=== PATIENT | male | born 1965 | race American Indian/Alaskan Native ===

== ENCOUNTER 2017-01-31 13:44 | Emergency (ER) | payer MEDICAID ==
[2017-01-31 13:56] VITALS: BP 133/74; PULSE 80; RESP 18; TEMP 98.4; O2SAT 98
--- NOTE | 2017-01-31 14:29 | ED PDOC ---
HPI: Dental Pain/Injury Time Seen by Provider: 01/31/17 14:15 Chief Complaint (Nursing): Dental Pain Chief Complaint (Provider): Left sided dental pain History Per: Patient History/Exam Limitations: no limitations Onset/Duration Of Symptoms: Days Current Symptoms Are (Timing): Still Present Severity: Moderate Quality: "Pain" Additional History Per: Patient Additional Complaint(s): The pt is a 51yo male, presents to the ED for evaluation of left sided dental pain radiating to left ear for the past 2 weeks. Pt denies any fever, chills or recent dental work. States he has not visited a dentist for his symptoms due to lack of dental insurance. Currently offers no additional medical complaints. Past Medical History Reviewed: Historical Data, Nursing Documentation, Vital Signs Vital Signs: Last Vital Signs Temp 98.4 F 01/31/17 13:51 Pulse 80 01/31/17 13:51 Resp 18 01/31/17 13:51 BP 133/74 01/31/17 13:51 Pulse Ox 98 01/31/17 13:51 - Medical History PMH: Diabetes - Surgical History Surgical History: No Surg Hx - Family History Family History: States: Unknown Family Hx - Home Medications Home Medications: Ambulatory Orders Medication Instructions Recorded Cyclobenzaprine HCl [Flexeril] 10 mg PO Q8 #20 tab 11/10/14 Ibuprofen [Motrin] 600 mg PO Q6 PRN #20 tab 11/10/14 Metformin Hydrochloride [Metformin] 500 mg PO BID 11/10/14 Naproxen [Naprosyn Tab] 1 tab PO QID #15 tab 01/31/17 Penicillin VK [Pen-Vee K] 1 tab PO QID #40 tab 01/31/17 - Allergies Allergies/Adverse Reactions: Allergies Allergy/AdvReac Type Severity Reaction Status Date / Time No Known Allergies Allergy Verified 01/31/17 13:51 Review of Systems ROS Statement: Except As Marked, All Systems Reviewed And Found Negative Constitutional: Negative for: Fever, Chills ENT: Positive for: Ear Pain (left), Other (left sided dental pain) Physical Exam - Reviewed Nursing Documentation Reviewed: Yes Vital Signs Reviewed: Yes - Physical Exam Appears: Positive for: Well, Non-toxic, No Acute Distress Head Exam: Positive for: ATRAUMATIC Skin: Positive for: Normal Color, Warm Eye Exam: Positive for: Normal appearance, EOMI, PERRL ENT: Positive for: TM Is/Are (normal b/l), Other (broken tooth noted to left lower jaw) Neck: Positive for: Normal, Supple Neurologic/Psych: Positive for: Alert, Oriented - ECG O2 Sat by Pulse Oximetry: 98 (RA) Pulse Ox Interpretation: Normal Medical Decision Making Medical Decision Making: Time: 1430 Impression: Dental pain Plan: * Based on presentation, pt informed he will be given Rx antibiotics and given referrals for [facility] as well as an oral surgeon. * Pt informed on the need to follow up for further care. Pt expresses understanding and is agreeable with plan Scribe Attestation: All records were documented by Breanna Patel, acting as a Scribe for JADA Tinoco. Provider Scribe Attestation: All medical record entries made by the Scribe were at my direction and personally dictated by me. I have reviewed the chart and agree that the record accurately reflects my personal performance of the history, physical exam, medical decision making, and the department course for this patient. I have also personally directed, reviewed, and agree with the discharge instructions and disposition. Disposition - Clinical Impression Clinical Impression: Pain, dental - Patient ED Disposition Is Patient to be Admitted: No - Disposition Referrals: [facility] [Outside] Francisco Cardona DDS [Staff Provider] - Disposition: Routine/Home Disposition Time: 14:30 Condition: FAIR Prescriptions: Naproxen [Naprosyn Tab] 1 tab PO QID #15 tab Penicillin VK [Pen-Vee K] 1 tab PO QID #40 tab Instructions: Toothache (ED)
== END 2017-01-31 14:30 | disposition home or self-care (01) ==
LOC: H.ER 13:44
DX: K08.89 Other specified disorders of teeth and supporting structures (principal); E11.9 Type 2 diabetes mellitus without complications; Z79.84 Long term (current) use of oral hypoglycemic drugs

== ENCOUNTER 2017-05-06 19:35 | Emergency (ER) | payer MEDICAID, OTHER ==
[2017-05-06 19:48] VITALS: BP 128/81; PULSE 75; RESP 18; TEMP 97.6; O2SAT 20
--- NOTE | 2017-05-06 20:13 | ED PDOC ---
HPI: Dental Pain/Injury Time Seen by Provider: 05/06/17 19:35 Chief Complaint (Nursing): Dental Pain Chief Complaint (Provider): Dental Pain History Per: Patient History/Exam Limitations: no limitations Onset/Duration Of Symptoms: Days (x3) Current Symptoms Are (Timing): Still Present Additional Complaint(s): Pedro Harvey is a 51 year old male who presents to the emergency department with a complaint of dental pain associated with left ear pain ongoing for 3 days. Denied any fever or chills. Patient stated he had similar symptoms in the past that has been treated by antibiotics and also has a pending dentist appointment on 05/07/17. PMD: none provided Past Medical History Reviewed: Historical Data, Nursing Documentation, Vital Signs Vital Signs: Last Vital Signs Temp 97.6 F 05/06/17 19:44 Pulse 75 05/06/17 19:44 Resp 18 05/06/17 19:44 BP 128/81 05/06/17 19:44 Pulse Ox 20 L 05/06/17 19:44 - Medical History PMH: Diabetes - Family History Family History: States: Unknown Family Hx - Home Medications Home Medications: Ambulatory Orders Medication Instructions Recorded Cyclobenzaprine HCl [Flexeril] 10 mg PO Q8 #20 tab 11/10/14 Ibuprofen [Motrin] 600 mg PO Q6 PRN #20 tab 11/10/14 Metformin Hydrochloride [Metformin] 500 mg PO BID 11/10/14 Naproxen [Naprosyn Tab] 1 tab PO QID #15 tab 01/31/17 Penicillin VK [Pen-Vee K] 1 tab PO QID #40 tab 01/31/17 - Allergies Allergies/Adverse Reactions: Allergies Allergy/AdvReac Type Severity Reaction Status Date / Time No Known Allergies Allergy Verified 01/31/17 13:51 Review of Systems ROS Statement: Except As Marked, All Systems Reviewed And Found Negative Constitutional: Negative for: Fever, Chills ENT: Positive for: Ear Pain (left), Other (dental pain) Physical Exam - Reviewed Nursing Documentation Reviewed: Yes Vital Signs Reviewed: Yes - Physical Exam Appears: Positive for: Well, Non-toxic, No Acute Distress Head Exam: Positive for: ATRAUMATIC, NORMAL INSPECTION, NORMOCEPHALIC ENT: Positive for: TM Is/Are (clear bilaterally with minimal cerumen), Other ( lower dentition decay; broken with pain). Negative for: Normal ENT Inspection, Pharyngeal Erythema (gingivitis/dental abscess) - ECG O2 Sat by Pulse Oximetry: 20 Medical Decision Making Medical Decision Making: Initial Impression: Dental pain; Ear pain Scribe Attestation: Documented by So Pate, acting as a scribe for Yulissa Hernández PA-C. Provider Scribe Attestation: All medical record entries made by the Scribe were at my direction and personally dictated by me. I have reviewed the chart and agree that the record accurately reflects my personal performance of the history, physical exam, medical decision making, and the department course for this patient. I have also personally directed, reviewed, and agree with the discharge instructions and disposition. Disposition - Clinical Impression Clinical Impression: Pain, dental - Patient ED Disposition Is Patient to be Admitted: No Counseled Patient/Family Regarding: Diagnosis, Need For Followup - Disposition Disposition: Routine/Home Disposition Time: 08:15 Condition: FAIR Forms: [employer] (Indonesian)
== END 2017-05-06 20:19 | disposition home or self-care (01) ==
LOC: H.ER 19:35
DX: K08.89 Other specified disorders of teeth and supporting structures (principal); H92.09 Otalgia, unspecified ear

== ENCOUNTER 2017-09-11 17:01 | Emergency (ER) | payer OTHER ==
[2017-09-11 17:24] VITALS: BP 128/72; PULSE 78; RESP 20; TEMP 98; O2SAT 100
--- NOTE | 2017-09-11 17:58 | ED PDOC ---
HPI: CCC, URI, Sore Throat Time Seen by Provider: 09/11/17 17:30 Chief Complaint (Nursing): Cough, Cold, Congestion Chief Complaint (Provider): Sore throat History Per: Patient History/Exam Limitations: no limitations Current Symptoms Are (Timing): Still Present Additional Complaint(s): Pedro is a 52 year old male who presents to the emergency department complaining of sore throat and dry cough for 1 week. Patient notes nightsweats, but no fever. PMD: Provider TBD Past Medical History Reviewed: Historical Data, Nursing Documentation, Vital Signs Vital Signs: Last Vital Signs Temp 98 F 09/11/17 17:21 Pulse 78 09/11/17 17:21 Resp 20 09/11/17 17:21 BP 128/72 09/11/17 17:21 Pulse Ox 100 09/11/17 18:16 - Medical History PMH: No Chronic Diseases, Diabetes - Surgical History Surgical History: No Surg Hx - Family History Family History: States: Unknown Family Hx - Home Medications Home Medications: Ambulatory Orders Medication Instructions Recorded Cyclobenzaprine HCl [Flexeril] 10 mg PO Q8 #20 tab 11/10/14 Ibuprofen [Motrin] 600 mg PO Q6 PRN #20 tab 11/10/14 Metformin Hydrochloride [Metformin] 500 mg PO BID 11/10/14 Naproxen [Naprosyn Tab] 1 tab PO QID #15 tab 01/31/17 Penicillin VK [Pen-Vee K] 1 tab PO QID #40 tab 01/31/17 Naproxen 1 tab PO Q12 PRN #14 tab 05/06/17 Penicillin VK [Penicillin VK Tab] 500 mg PO BID #28 tab 05/06/17 Guaifen/Phenyleph/Acetaminophn 1 tab PO BID #14 tab 09/11/17 [Mucinex Fast-Max Cold & Sinus 325 mg-200 mg-5] predniSONE [predniSONE Tab] 20 mg PO DAILY #12 tab 09/11/17 - Allergies Allergies/Adverse Reactions: Allergies Allergy/AdvReac Type Severity Reaction Status Date / Time No Known Allergies Allergy Verified 01/31/17 13:51 Review of Systems ROS Statement: Except As Marked, All Systems Reviewed And Found Negative Constitutional: Positive for: Sweats. Negative for: Fever Physical Exam - Reviewed Nursing Documentation Reviewed: Yes Vital Signs Reviewed: Yes - Physical Exam Appears: Positive for: Well, Non-toxic Head Exam: Positive for: ATRAUMATIC, NORMAL INSPECTION, NORMOCEPHALIC Skin: Positive for: Normal Color, Warm, Dry Eye Exam: Positive for: Normal appearance ENT: Positive for: Normal ENT Inspection. Negative for: Pharyngeal Erythema, Tonsillar Exudate Neck: Positive for: Normal Cardiovascular/Chest: Positive for: Regular Rate, Rhythm Respiratory: Negative for: Accessory Muscle Use, Respiratory Distress Back: Positive for: Normal Inspection Extremity: Positive for: Normal ROM Neurologic/Psych: Positive for: Alert, Oriented - ECG O2 Sat by Pulse Oximetry: 100 (RA) Pulse Ox Interpretation: Normal Medical Decision Making Medical Decision Making: Time: 17:57 Upon provider evaluation patient is medically stable, and requires no further treatment in the ED at this time. Patient will be discharged with Rx for Mucinex and PredniSONE Tab. Counseling was provided and all questions were answered regarding diagnosis. There is agreement to discharge plan. Return if symptoms persist or worsen. Scribe Attestation: Documented by Oscar Acosta, acting as a scribe for Betty Sanchez PA-C Provider Scribe Attestation: All medical record entries made by the Scribe were at my direction and personally dictated by me. I have reviewed the chart and agree that the record accurately reflects my personal performance of the history, physical exam, medical decision making, and the department course for this patient. I have also personally directed, reviewed, and agree with the discharge instructions and disposition. Disposition - Clinical Impression Clinical Impression: Sore throat - Patient ED Disposition Is Patient to be Admitted: No - Disposition Disposition: Routine/Home Disposition Time: 17:57 Condition: GOOD Prescriptions: Guaifen/Phenyleph/Acetaminophn [Mucinex Fast-Max Cold & Sinus 325 mg-200 mg-5] 1 tab PO BID #14 tab predniSONE [predniSONE Tab] 20 mg PO DAILY #12 tab Instructions: Pharyngitis (ED) Forms: [employer] (Chinese)
== END 2017-09-11 18:18 | disposition home or self-care (01) ==
LOC: H.ER 17:01
DX: J02.9 Acute pharyngitis, unspecified (principal); Z79.84 Long term (current) use of oral hypoglycemic drugs

== ENCOUNTER 2017-09-15 12:09 | Emergency (ER) | payer OTHER ==
[2017-09-15 12:34] VITALS: BP 125/72; PULSE 55; RESP 16; TEMP 97; O2SAT 98
[2017-09-15] MEDS: Sodium Chloride 0.9% 1,000 ML IV STA (13:22)
[2017-09-15 14:14] LABS: URINE BILIRUBIN NEGATIVE (NEGATIVE); URINE BLOOD NEGATIVE (NEGATIVE); URINE CLARITY SLIGHTY-CLOUDY (Clear); URINE COLOR YELLOW (YELLOW); URINE GLUCOSE (UA) >=500 mg/dL (Normal); URINE LEUKOCYTE ESTERASE NEG Leu/uL (Negative); URINE NITRATE NEGATIVE (NEGATIVE); URINE PROTEIN 30 mg/dL (NEGATIVE); URINE UROBILINOGEN 0.2-1.0 mg/dL (0.2-1.0)
[2017-09-15 14:16] LABS: BASO % 0.4 % (0.0-2.0); HEMOGLOBIN 15.2 g/dL (12.0-18.0); LYMPH # 0.7 K/uL (1.0-4.3); LYMPH % 9.1 % (20.0-40.0); MEAN CELL VOLUME 88.8 fl (80.0-94.0); MEAN CORPUSCULAR HEMOGLOBIN 29.5 pg (27.0-31.0); MEAN CORPUSCULAR HGB CONC 33.2 g/dL (33.0-37.0); MEAN PLATELET VOLUME 9.2 fl (7.2-11.7); MONO # 0.1 K/uL (0.0-0.8); MONO % 1.7 % (0.0-10.0); NEUT # 6.6 K/uL (1.8-7.0); NEUT % 88.8 % (50.0-75.0); NRBC % 0.1 % (0.0-0.0); PLATELET COUNT 387 K/uL (130-400); RBC 5.15 Mil/uL (4.40-5.90); RED CELL DISTRIBUTION WIDTH 13.8 % (11.5-14.5); WHITE BLOOD COUNT 7.4 K/uL (4.8-10.8)
[2017-09-15 14:28] LABS: ALB/GLOB RATIO 1.2 (1.0-2.1); ALBUMIN 4.5 g/dL (3.5-5.0); ALT/SGPT 39 U/L (21-72); AST/SGOT 46 U/L (17-59); BLOOD UREA NITROGEN 16 mg/dl (9-20); CALCIUM 9.6 mg/dL (8.4-10.2); GFR AFRICAN-AMERICAN > 60; GFR NON-AFRICAN AMERICAN > 60
--- NOTE | 2017-09-15 15:15 | ED PDOC ---
Hyperglycemia/Hypoglycemia Time Seen by Provider: 09/15/17 13:07 Chief Complaint (Nursing): High Blood Sugar Chief Complaint (Provider): elevated BS History Per: Patient History/Exam Limitations: no limitations Current Symptoms Are (Timing): Still Present Associated Infectious Symptoms: Urinary Frequency. denies: Cough, Sore Throat, Sinus Congestion, Dysuria, Urinary Urgency, Nausea, Vomiting, Diarrhea : The patient does not have any of the infectious symptoms listed except for those marked. Treatment Prior To Provider Evaluation: Accucheck, Other (insulin IM) Response To Treatment: Good Response Additional Complaint(s): 52yo M in ED for DM sent by clinic for elevated BS-with trace ketones in udip. Pt negative for dizziness, nausea vomiting abd pain or vision changes. Past Medical History Reviewed: Historical Data, Nursing Documentation, Vital Signs Vital Signs: Last Vital Signs Temp 97.0 F L 09/15/17 12:31 Pulse 55 L 09/15/17 12:31 Resp 16 09/15/17 12:31 BP 125/72 09/15/17 12:31 Pulse Ox 98 09/15/17 12:31 - Medical History PMH: Diabetes - Family History Family History: States: Unknown Family Hx - Home Medications Home Medications: Ambulatory Orders Medication Instructions Recorded Cyclobenzaprine HCl [Flexeril] 10 mg PO Q8 #20 tab 11/10/14 Ibuprofen [Motrin] 600 mg PO Q6 PRN #20 tab 11/10/14 Metformin Hydrochloride [Metformin] 500 mg PO BID 11/10/14 Naproxen [Naprosyn Tab] 1 tab PO QID #15 tab 01/31/17 Penicillin VK [Pen-Vee K] 1 tab PO QID #40 tab 01/31/17 Naproxen 1 tab PO Q12 PRN #14 tab 05/06/17 Penicillin VK [Penicillin VK Tab] 500 mg PO BID #28 tab 05/06/17 Guaifen/Phenyleph/Acetaminophn 1 tab PO BID #14 tab 09/11/17 [Mucinex Fast-Max Cold & Sinus 325 mg-200 mg-5] predniSONE [predniSONE Tab] 20 mg PO DAILY #12 tab 09/11/17 - Allergies Allergies/Adverse Reactions: Allergies Allergy/AdvReac Type Severity Reaction Status Date / Time No Known Allergies Allergy Verified 09/15/17 12:31 Review of Systems ROS Statement: Except As Marked, All Systems Reviewed And Found Negative Constitutional: Negative for: Fever, Chills Physical Exam - Reviewed Nursing Documentation Reviewed: Yes Vital Signs Reviewed: Yes - Physical Exam Appears: Positive for: Well, Non-toxic, No Acute Distress Skin: Positive for: Normal Color, Warm, DRY Cardiovascular/Chest: Positive for: Regular Rate, Rhythm Respiratory: Positive for: CNT, Normal Breath Sounds Gastrointestinal/Abdominal: Positive for: Normal Exam, Bowel Sounds, Soft. Negative for: Tenderness Neurologic/Psych: Positive for: Alert, Oriented - Laboratory Results Result Diagrams: 09/15/17 13:40 09/15/17 13:40 - ECG O2 Sat by Pulse Oximetry: 98 - Progress ED Course And Treament: Orders Category Date Time Status COMP METABOLIC PANEL Stat Chem 09/15/17 13:40 Completed CBC (WITH DIFFERENTIAL) Stat ARTEM 09/15/17 13:40 Results Sodium Chloride 0.9% 1,000 ml Med 09/15/17 13:00 Discontinued IV 1,000 mls/hr URINALYSIS Stat URINALYSIS 09/15/17 13:40 Completed Medical Decision Making Medical Decision Making: BS FS improved in ER. pt well appearing. stable for d.c no indication for admission at this time. pt has appropriate clinic f.u 09/15/17 09/15/17 09/15/17 15:06 13:40 13:40 WBC RBC Hgb Hct MCV MCH MCHC RDW Plt Count MPV Neut % (Auto) Lymph % (Auto) Nolan % (Auto) Eos % (Auto) Baso % (Auto) Neut # Lymph # Nolan # Eos # Baso # Neutrophils % (Manual) Lymphocytes % (Manual) Monocytes % (Manual) Platelet Estimate Sodium 137 Potassium 4.3 Chloride 99 Carbon Dioxide 28 Anion Gap 14 BUN 16 Creatinine 0.9 Est GFR ( Amer) > 60 Est GFR (Non-Af Amer) > 60 POC Glucose (mg/dL) 250 H Random Glucose 314 H Calcium 9.6 Total Bilirubin 0.6 AST 46 ALT 39 Alkaline Phosphatase 81 Total Protein 8.5 H Albumin 4.5 Globulin 3.9 Albumin/Globulin Ratio 1.2 Urine Color Yellow Urine Clarity Slighty-cloudy Urine pH 7.0 Ur Specific [place] 1.035 H Urine Protein 30 Urine Glucose (UA) >=500 Urine Ketones Negative Urine Blood Negative Urine Nitrate Negative Urine Bilirubin Negative Urine Urobilinogen 0.2-1.0 Ur Leukocyte Esterase Neg Urine RBC (Auto) 2 Urine Microscopic WBC < 1 09/15/17 09/15/17 13:40 12:46 WBC 7.4 RBC 5.15 Hgb 15.2 Hct 45.7 MCV 88.8 MCH 29.5 MCHC 33.2 RDW 13.8 Plt Count 387 MPV 9.2 Neut % (Auto) 88.8 H Lymph % (Auto) 9.1 L Nolan % (Auto) 1.7 Eos % (Auto) 0.0 Baso % (Auto) 0.4 Neut # 6.6 Lymph # 0.7 L Nolan # 0.1 Eos # 0.0 Baso # 0.0 Neutrophils % (Manual) Pending Lymphocytes % (Manual) Pending Monocytes % (Manual) Pending Platelet Estimate Pending Sodium Potassium Chloride Carbon Dioxide Anion Gap BUN Creatinine Est GFR ( Amer) Est GFR (Non-Af Amer) POC Glucose (mg/dL) 311 H Random Glucose Calcium Total Bilirubin AST ALT Alkaline Phosphatase Total Protein Albumin Globulin Albumin/Globulin Ratio Urine Color Urine Clarity Urine pH Ur Specific [place] Urine Protein Urine Glucose (UA) Urine Ketones Urine Blood Urine Nitrate Urine Bilirubin Urine Urobilinogen Ur Leukocyte Esterase Urine RBC (Auto) Urine Microscopic WBC Disposition - Clinical Impression Clinical Impression: Hyperglycemia - Patient ED Disposition Is Patient to be Admitted: No Counseled Patient/Family Regarding: Studies Performed, Diagnosis, Need For Followup - Disposition Disposition: Routine/Home Disposition Time: 15:18 Condition: STABLE Instructions: Diabetic Hyperglycemia (ED)
[2017-09-15 16:47] LABS: LYMPHOCYTE 13 % (20-50); MONOCYTE 4 % (0-10); NEUTROPHIL 83 % (42-75); PLATELET ESTIMATE NORMAL (NORMAL); TOTAL CELLS COUNTED 100
== END 2017-09-15 15:29 | disposition home or self-care (01) ==
LOC: H.ER 12:09
DX: E11.65 Type 2 diabetes mellitus with hyperglycemia (principal); Z79.84 Long term (current) use of oral hypoglycemic drugs
CPT/HCPCS: 80053; 81003; 82948; 85025; 99283; J7040